=== PATIENT | female | born 1955 | race African-American/Black ===

== ENCOUNTER 2017-03-31 17:29 | Emergency (ER) | payer OTHER ==
[~2017-03-31 17:29] MED LIST: ALBU2.5V14 NEB; AMLO10TA2 PO; BRIM5DRO4 OP; CELE200C PO; CIPR500T PO; HYDR50TA6 PO; LATA2.5D3 EACHEYE; LORA10TA3 PO; METO10TA81 PO; ONDA4TAB10 SL; PHEN37.5 PO; PRED-220 PO; PROAIR HFA8.5 GM IH; VALS320T2 PO
[2017-03-31 17:39] VITALS: BP 164/95
[2017-03-31] MEDS ORDERED: ALBUTEROL SULFATE 2.5 MG/3 ML NEBU. NEB ONE (18:00)
--- NOTE | 2017-03-31 18:16 | PHYS DOC ---
Past Medical History Past Medical History: Asthma, Diabetes-Type II, Hypertension Additional Past Medical Histor: morbid obesity Past Surgical History: Tubal ligation Additional Past Surgical Histo: hernia surgery, gallstones removed Alcohol Use: None Drug Use: None Adult General Chief Complaint Chief Complaint: ASTHMA HPI HPI Patient is a 62 year old female who presents with 1 day history of worsening shortness of breath wheezing consistent with asthma exacerbation no fever or productive cough no chest pain no increased leg swelling. Patient's nebulizer machine recently broke unclear if she actually has inhalers to use his back. Review of Systems Review of Systems Constitutional: Denies fever or chills [] Eyes: Denies change in visual acuity, redness, or eye pain [] HENT: Denies nasal congestion or sore throat [] Respiratory: Denies cough or shortness of breath [] Cardiovascular: No additional information not addressed in HPI [] GI: Denies abdominal pain, nausea, vomiting, bloody stools or diarrhea [] : Denies dysuria or hematuria [] Musculoskeletal: Denies back pain or joint pain [] Integument: Denies rash or skin lesions [] Neurologic: Denies headache, focal weakness or sensory changes [] Endocrine: Denies polyuria or polydipsia [] Current Medications Current Medications Current Medications Medications (Trade) Dose Ordered Sig/Scott Start Time Stop Time Status Last Admin Dose Admin Albuterol Sulfate (Ventolin Neb Soln) 2.5 mg 1X ONCE 03/31/17 18:00 03/31/17 18:01 DC 03/31/17 18:21 2.5 MG Allergies Allergies Allergies Coded Allergies Type Severity Reaction Last Updated Verified Penicillins Allergy Intermediate rash 11/07/14 Yes adhesive Allergy Intermediate rash 11/07/14 Yes Uncoded Allergies Type Severity Reaction Last Updated Verified toilet tissue Allergy Severe Rash 11/13/14 Physical Exam Physical Exam Constitutional: Well developed, well nourished, no acute distress, non-toxic appearance. [] HENT: Normocephalic, atraumatic, bilateral external ears normal, oropharynx moist, no oral exudates, nose normal. [] Eyes: PERRLA, EOMI, conjunctiva normal, no discharge. [] Neck: Normal range of motion, no tenderness, supple, no stridor. [] Cardiovascular:Heart rate regular rhythm, no murmur [] Lungs & Thorax: Bilateral breath sounds clear to auscultation [] Abdomen: Bowel sounds normal, soft, no tenderness, no masses, no pulsatile masses. [] Skin: Warm, dry, no erythema, no rash. [] Back: No tenderness, no CVA tenderness. [] Extremities: No tenderness, no cyanosis, no clubbing, ROM intact, no edema. [] Neurologic: Alert and oriented X 3, normal motor function, normal sensory function, no focal deficits noted. [] Psychologic: Affect normal, judgement normal, mood normal. [] Current Patient Data Vital Signs Vital Signs Date Time Temp Pulse Resp B/P (MAP) Pulse Ox O2 Delivery O2 Flow Rate FiO2 03/31/17 18:22 97 03/31/17 17:39 98.3 70 24 164/95 (118) Room Air 98.3 Lab Values Laboratory Tests Test 03/31/17 17:50 Urine Collection Type Unknown Urine Color Yellow Urine Clarity Cloudy Urine pH 5.5 Urine Specific [place] 1.025 Urine Protein Negative mg/dL (NEG-TRACE) Urine Glucose (UA) 250 mg/dL (NEG) Urine Ketones (Stick) Trace mg/dL (NEG) Urine Blood Trace (NEG) Urine Nitrite Negative (NEG) Urine Bilirubin Negative (NEG) Urine Urobilinogen Dipstick 0.2 mg/dL (0.2 mg/dL) Urine Leukocyte Esterase Large (NEG) Urine RBC 3-5 /HPF (0-2) Urine WBC Tntc /HPF (0-4) Urine Squamous Epithelial Cells Many /LPF Urine Amorphous Sediment Present /HPF Urine Bacteria Many /HPF (0-FEW) Urine Mucus Mod /LPF Urine Trichomonas Present EKG EKG EKG normal sinus rhythm rate of 61 no STEMI QTC was normal interpreted by me at 1927 [] Radiology/Procedures Radiology/Procedures Chest x-ray cardiomegaly but no infiltrate interpretation by me [] Course & Med Decision Making Course & Med Decision Making Pertinent Labs and Imaging studies reviewed. (See chart for details) Chest x-ray shows some cardiomegaly but no infiltrates or pulmonary edema. UA is positive for UTI Trichomonas. [] Dragon Disclaimer Dragon Disclaimer This electronic medical record was generated, in whole or in part, using a voice recognition dictation system. Departure Departure Referrals: VANESSA PARADA MD (PCP) VANDANA SNOW MD Mar 31, 2017 18:16
--- NOTE | 2017-03-31 18:30 | EKG ---
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
[2017-03-31 18:42] LABS: BILIRUBIN,URINE NEGATIVE (NEG); GLUCOSE,URINE 250 mg/dL (NEG); NITRITE,URINE NEGATIVE (NEG); PH,URINE 5.5; PROTEIN,URINE NEGATIVE (NEG-TRACE); UROBILINOGEN,URINE 0.2 mg/dL (0.2 mg/dL)
[2017-03-31 18:50] LABS: BACTERIA,URINE MANY /HPF (0-FEW); SQUAMOUS EPITHELIAL CELL,UR MANY /LPF; WBC,URINE TNTC /HPF (0-4)
[2017-03-31 18:51] LABS: TRICHOMONAS,URINE PRESENT
[2017-03-31] MEDS ORDERED: oxyCODONE/APAP 5/325 1 TAB TABLET PO ONE (19:45)
[2017-03-31] MEDS ORDERED: NITR100C62 PO (20:21)
[2017-03-31] MEDS ORDERED: METR500T PO (20:21)
[2017-03-31] MEDS ORDERED: PROVENTIL HFA6.7 GM IH (20:21)
[2017-03-31] MEDS ORDERED: DEXAMETHASONE SOD PHOS 4 MG/ML VIAL IV ONE (20:30)
[2017-03-31 21:41] LABS: POTASSIUM ISTAT 4.3 mmol/L (3.5-5.0)
--- NOTE | 2017-04-01 07:55 | RAD ---
Portable chest, 03/31/2017: History: Cough, wheezing Comparison is made to a study from 11/14/2014. The cardiac silhouette is at the upper limits of normal in size. Prominent epicardial fat pads are contributing to this appearance. The pulmonary vascularity is normal. No pulmonary infiltrates are seen. There is no evidence of pleural fluid. IMPRESSION: No acute cardiopulmonary abnormality is detected.
--- NOTE | 2017-04-01 14:41 | EKG ---
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 RI6.01 Unconfirmed report Compared to ECG 12/03/2012 02:53:09 No significant changes Electronically Signed On 04-04-2017 10:40:00 CDT by Lul Del Rio
== END 2017-03-31 20:51 | disposition home or self-care (01) ==
LOC: ER 17:29
DX: R06.02 Shortness of breath (principal); R06.2 Wheezing; J45.909 Unspecified asthma, uncomplicated; E11.9 Type 2 diabetes mellitus without complications; I10 Essential (primary) hypertension; E66.01 Morbid (severe) obesity due to excess calories; Z88.0 Allergy status to penicillin; Z91.048 Other nonmedicinal substance allergy status
CPT/HCPCS: 71010; 80047; 81001; 84484; 87086; 93005; 94250; 94640; 99285-25

== ENCOUNTER → 2017-06-23 | Outpatient (CLI) | payer OTHER ==
[~2017-06-23] MED LIST changes: +METR500T PO; +NITR100C62 PO; +PROVENTIL HFA6.7 GM IH
--- NOTE | 2017-06-23 10:35 | RAD ---
DATE: 06/23/2017 EXAM: DIGITAL SCREEN BILAT W/CAD HISTORY: Screening COMPARISON: One year earlier This study was interpreted with the benefit of Computerized Aided Detection (CAD). FINDINGS: Breast Density: FATTY The Breast Parenchyma is primarily fatty replaced. Breast parenchyma level density A.. There has not been a significant change in the appearance of the breasts compared to the previous exam IMPRESSION: Benign finding BI-RADS CATEGORY: 2 BENIGN FINDING(S) RECOMMENDED FOLLOW-UP: 12M 12 MONTH FOLLOW-UP PQRS compliance statement: Patient information was entered into a reminder system with a target due date 06/23/2018 for the next mammogram. Mammography is a sensitive method for finding small breast cancers, but it does not detect them all and is not a substitute for careful clinical examination. A negative mammogram does not negate a clinically suspicious finding and should not result in delay in biopsying a clinically suspicious abnormality. "Our facility is accredited by the [employer] Mammography Program."
== END | disposition home or self-care (01) ==
LOC: MAMMO 06-15 08:41
PROVIDERS: ATTEND Family Medicine
DX: Z12.31 Encounter for screening mammogram for malignant neoplasm of breast (principal)
CPT/HCPCS: G0202; 77067

== ENCOUNTER → 2017-11-08 | Outpatient (CLI) | payer OTHER ==
[2017-11-08] MEDS: IOHEXOL 240 MG/ML 50ML VIAL. PO ×2 (11:45→13:26)
[2017-11-08] MEDS: IOHEXOL 300 MG/ML 100ML VIAL. IV ×2 (11:45→13:26)
[2017-11-08 12:19] LABS: CREATININE 1.2 mg/dL (0.6-1.0)
[2017-11-08 12:19] LABS: BLOOD UREA NITROGEN 24 mg/dL (7-20)
[2017-11-08 12:20] LABS: GFR 55.1
== END | disposition home or self-care (01) ==
LOC: CT 11:00
DX: K43.6 Other and unspecified ventral hernia with obstruction, without gangrene (principal); Z90.49 Acquired absence of other specified parts of digestive tract
CPT/HCPCS: 36415; 74177; 82565; 84520; Q9966; Q9967

== ENCOUNTER 2017-11-21 06:22 | Inpatient (IN) | payer OTHER ==
[2017-11-21] MEDS ORDERED: fentaNYL PF VIAL 100 MCG/2 ML VIAL IV (07:00)
[2017-11-21] MEDS ORDERED: LIDOCAINE 1% PF 2 ML VIAL. ID (07:00)
[2017-11-21] MEDS ORDERED: HYDROmorphone 2 MG/ML VIAL IV (07:00)
[2017-11-21] MEDS ORDERED: ONDANSETRON PF 4 MG/2 ML VIAL. IV ×2 (07:00→18:00)
[2017-11-21] MEDS ORDERED: MORPHINE SULFATE 2 MG/ML DISP.SYRIN. IV (07:00)
[2017-11-21] MEDS: IV RINGERS,LACTATED 1000ML 1,000 ML IV (08:20)
[2017-11-21 08:24] LABS: ADD MAN DIFF? NO
[2017-11-21 08:28] LABS: BASO # 0.1 x10^3/uL (0.0-0.2); BASO % 1 % (0-3); EOS # 0.2 x10^3/uL (0.0-0.7); EOS % 2 % (0-3); HEMATOCRIT 39.5 % (36.0-47.0); HEMOGLOBIN 12.9 g/dL (12.0-15.5); LYMPH # 2.5 x10^3/uL (1.0-4.8); LYMPH % 29 % (24-48); MEAN CORPUSCULAR HEMOGLOBIN 29 pg (25-35); MEAN CORPUSCULAR HGB CONC 33 g/dL (31-37); MEAN CORPUSCULAR VOLUME 89 fL (79-100); MONO # 0.9 x10^3/uL (0.0-1.1); MONO % 10 % (0-9); NEUT % 58 % (31-73); PLATELET COUNT 247 x10^3/uL (140-400); RED BLOOD COUNT 4.44 x10^6/uL (3.50-5.40); RED CELL DISTRIBUTION WIDTH 14.1 % (11.5-14.5); WHITE BLOOD COUNT 8.6 x10^3/uL (4.0-11.0)
[2017-11-21 08:39] LABS: ANION GAP 10 (6-14); BLOOD UREA NITROGEN 15 mg/dL (7-20); BUN/CREATININE RATIO 15 (6-20); CALCIUM 9.6 mg/dL (8.5-10.1); CARBON DIOXIDE 29 mmol/L (21-32); CHLORIDE 101 mmol/L (98-107); GLUCOSE 210 mg/dL (70-99); POTASSIUM 3.7 mmol/L (3.5-5.1); SODIUM 140 mmol/L (136-145)
[2017-11-21 08:45] LABS: ALBUMIN 3.1 g/dL (3.4-5.0); ALBUMIN/GLOBULIN RATIO 0.8 (1.0-1.7); ALK PHOS 143 U/L (46-116); ALT (SGPT) 16 U/L (14-59); AST (SGOT) 12 U/L (15-37); TOTAL PROTEIN 7.2 g/dL (6.4-8.2)
[2017-11-21 08:51] LABS: PROTHROMBIN TIME PATIENT 12.3 SEC (11.7-14.0)
[2017-11-21] MEDS: INSULIN REGULAR 100 UNIT/ML 10ML VIAL. SQ (08:58)
[2017-11-21] MEDS ORDERED: LIDOCAINE 2% PF Vial for OR 5 ML VIAL. (09:21)
[2017-11-21] MEDS ORDERED: fentaNYL PF VIAL 100 MCG/2 ML VIAL ×2 (09:21→16:16)
[2017-11-21] MEDS ORDERED: PROPOFOL 20 ML IV (09:21)
[2017-11-21] MEDS ORDERED: ROCURONIUM 50 MG/5 ML VIAL. ×2 (09:21→14:28)
[2017-11-21 10:07] LABS: POC GLUCOSE 162 mg/dL (70-99)
[2017-11-21] MEDS: CLINDAMYCIN 900MG PREMIX 50 ML IV ×2 (12:26→16:41)
[2017-11-21] MEDS ORDERED: ONDANSETRON PF 4 MG/2 ML VIAL. (12:30)
[2017-11-21] MEDS ORDERED: GLYCOPYRROLATE 1 MG/5 ML VIAL. (12:31)
[2017-11-21] MEDS ORDERED: PHENYLEPHRINE in 0.9% NACL PF 1 MG/10 ML SYRINGE. IV (12:35)
[2017-11-21] MEDS: BUPIVACAINE-EPI 0.25%-1:200000 50 ML VIAL. (12:42)
[2017-11-21] MEDS ORDERED: DESFLURANE > 120 MINUTES IH (15:25)
[2017-11-21] MEDS ORDERED: HYDROMORPHONE IV (18:00)
[2017-11-21] MEDS ORDERED: 0.9 % SODIUM CHLORIDE 10 ML DISP.SYRIN. IV (18:00)
[2017-11-21 18:05] LABS: POC GLUCOSE 260 mg/dL (70-99)
[2017-11-21] MEDS ORDERED: PROCHLORPERAZINE 10 MG/2 ML VIAL. (18:17)
[2017-11-21] MEDS ORDERED: INSULIN ASPART 100 UNIT/ML 10ML VIAL. SQ (18:17)
[2017-11-21] MEDS: IPRATRPIUM/ALBUTEROL 0.5/2.5MG 3 ML NEBU. NEB (18:20)
[2017-11-21] MEDS: INSULIN ASPART 100 UNIT/ML 10ML VIAL. SQ (18:23)
[2017-11-21] MEDS: fentaNYL PF VIAL 100 MCG/2 ML VIAL IV (18:25)
[2017-11-21 21:10] LABS: POC GLUCOSE 295 mg/dL (70-99)
[2017-11-21] MEDS ORDERED: DEXTROSE 50% 25 GM / 50ML DISP.SYRIN. IV (22:30)
[2017-11-22] MEDS: FAMOTIDINE 20 MG/2 ML VIAL IVP ×3 (00:02→21:40)
[2017-11-22] MEDS: INSULIN ASPART 300 UNITS/3 ML INSULN.PEN SQ ×5 (00:08→18:09)
[2017-11-22] MEDS: POTASSIUM CL 20MEQ-0.45% NACL 1,000 ML IV ×2 (03:00→03:56)
[2017-11-22 05:42] LABS: ADD MAN DIFF? NO
[2017-11-22 05:49] LABS: BASO % 0 % (0-3); EOS % 0 % (0-3); HEMOGLOBIN 12.5 g/dL (12.0-15.5); LYMPH % 8 % (24-48); MEAN CORPUSCULAR HEMOGLOBIN 29 pg (25-35); MEAN CORPUSCULAR HGB CONC 33 g/dL (31-37); MEAN CORPUSCULAR VOLUME 90 fL (79-100); MONO # 0.9 x10^3/uL (0.0-1.1); MONO % 7 % (0-9); NEUT # 10.3 x10^3uL (1.8-7.7); NEUT % 84 % (31-73); PLATELET COUNT 246 x10^3/uL (140-400); RED BLOOD COUNT 4.25 x10^6/uL (3.50-5.40); RED CELL DISTRIBUTION WIDTH 13.9 % (11.5-14.5); WHITE BLOOD COUNT 12.2 x10^3/uL (4.0-11.0)
[2017-11-22 06:28] LABS: ANION GAP 7 (6-14); BLOOD UREA NITROGEN 17 mg/dL (7-20); CALCIUM 9.4 mg/dL (8.5-10.1); CARBON DIOXIDE 30 mmol/L (21-32); CHLORIDE 101 mmol/L (98-107); CREATININE 1.4 mg/dL (0.6-1.0); GFR 46.1; GLUCOSE 238 mg/dL (70-99); POTASSIUM 4.5 mmol/L (3.5-5.1); SODIUM 138 mmol/L (136-145)
[2017-11-22 06:40] LABS: POC GLUCOSE 223 mg/dL (70-99)
[2017-11-22] MEDS: CLINDAMYCIN 600MG PREMIX 50 ML IV ×3 (06:42→21:40)
[2017-11-22] MEDS: INSULIN ASPART 100 UNIT/ML 10ML VIAL. SQ (09:01)
[2017-11-22] MEDS: CLINDAMYCIN 900MG PREMIX 50 ML IV ×3 (09:02→09:06)
[2017-11-22] MEDS: LACTOBACILLUS RHAMNOSUS GG 1 CAPSULE. PO ×2 (09:05→21:00)
[2017-11-22] MEDS: IV NORMAL SALINE 1000ML BAG 1,000 ML IV (13:00)
[2017-11-22 13:05] LABS: POC GLUCOSE 205 mg/dL (70-99)
[2017-11-22] MEDS: IPRATRPIUM/ALBUTEROL 0.5/2.5MG 3 ML NEBU. NEB ×2 (15:11→20:31)
[2017-11-22 18:08] LABS: POC GLUCOSE 165 mg/dL (70-99)
[2017-11-22] MEDS ORDERED: DEXTROSE 50% 25 GM / 50ML DISP.SYRIN. IV (19:30)
[2017-11-22] MEDS: DORZOLAMIDE 2% OPHTH SOLUTION 10ML BOTTLE. OU (21:00)
[2017-11-22 21:38] LABS: POC GLUCOSE 171 mg/dL (70-99)
[2017-11-22] MEDS: BRIMONIDINE 0.2% OPHTH SOLUTION 5ML BOTTLE. OU (21:41)
[2017-11-22] MEDS: LATANOPROST 0.005% OPHTH SOLUTION 2.5ML BOTTLE. OU (21:41)
[2017-11-23] MEDS: IV NORMAL SALINE 1000ML BAG 1,000 ML IV ×3 (00:04→22:16)
[2017-11-23 05:00] LABS: ADD MAN DIFF? NO
[2017-11-23 05:26] LABS: BASO % 0 % (0-3); EOS % 0 % (0-3); HEMATOCRIT 37.4 % (36.0-47.0); HEMOGLOBIN 12.2 g/dL (12.0-15.5); LYMPH # 2.5 x10^3/uL (1.0-4.8); LYMPH % 23 % (24-48); MEAN CORPUSCULAR HEMOGLOBIN 30 pg (25-35); MEAN CORPUSCULAR HGB CONC 33 g/dL (31-37); MEAN CORPUSCULAR VOLUME 91 fL (79-100); MONO # 1.2 x10^3/uL (0.0-1.1); MONO % 11 % (0-9); NEUT # 6.9 x10^3uL (1.8-7.7); NEUT % 65 % (31-73); PLATELET COUNT 212 x10^3/uL (140-400); RED BLOOD COUNT 4.12 x10^6/uL (3.50-5.40); RED CELL DISTRIBUTION WIDTH 14.4 % (11.5-14.5); WHITE BLOOD COUNT 10.6 x10^3/uL (4.0-11.0)
[2017-11-23] MEDS: CLINDAMYCIN 600MG PREMIX 50 ML IV ×3 (05:59→22:04)
[2017-11-23 06:07] LABS: ALBUMIN 2.8 g/dL (3.4-5.0); ALBUMIN/GLOBULIN RATIO 0.7 (1.0-1.7); ALK PHOS 158 U/L (46-116); ALT (SGPT) 71 U/L (14-59); ANION GAP 7 (6-14); AST (SGOT) 28 U/L (15-37); BLOOD UREA NITROGEN 16 mg/dL (7-20); BUN/CREATININE RATIO 13 (6-20); CARBON DIOXIDE 32 mmol/L (21-32); CHLORIDE 103 mmol/L (98-107); CREATININE 1.2 mg/dL (0.6-1.0); GFR 55.1; GLUCOSE 165 mg/dL (70-99); SODIUM 142 mmol/L (136-145); TOTAL BILIRUBIN 0.8 mg/dL (0.2-1.0); TOTAL PROTEIN 6.7 g/dL (6.4-8.2)
[2017-11-23] MEDS: IPRATRPIUM/ALBUTEROL 0.5/2.5MG 3 ML NEBU. NEB ×4 (07:49→20:00)
[2017-11-23 08:17] LABS: POC GLUCOSE 166 mg/dL (70-99)
[2017-11-23] MEDS: BRIMONIDINE 0.2% OPHTH SOLUTION 5ML BOTTLE. OU ×2 (08:29→22:04)
[2017-11-23] MEDS: INSULIN ASPART 300 UNITS/3 ML INSULN.PEN SQ ×5 (08:35→17:43)
[2017-11-23] MEDS: LACTOBACILLUS RHAMNOSUS GG 1 CAPSULE. PO ×2 (08:36→22:05)
[2017-11-23] MEDS: DORZOLAMIDE 2% OPHTH SOLUTION 10ML BOTTLE. OU ×2 (08:37→22:04)
[2017-11-23] MEDS: FAMOTIDINE 20 MG/2 ML VIAL IVP ×2 (09:20→22:05)
[2017-11-23 11:15] LABS: POC GLUCOSE 161 mg/dL (70-99)
[2017-11-23] MEDS: INSULIN DETEMIR 300 UNITS/3 ML INSULN.PEN. SQ ×2 (13:00→22:23)
[2017-11-23 16:42] LABS: POC GLUCOSE 152 mg/dL (70-99)
[2017-11-23 21:17] LABS: POC GLUCOSE 165 mg/dL (70-99)
[2017-11-23] MEDS: LATANOPROST 0.005% OPHTH SOLUTION 2.5ML BOTTLE. OU (22:05)
[2017-11-24 04:23] LABS: HEMOGLOBIN A1C 8.6 % (4.8-5.6)
[2017-11-24 05:17] LABS: ADD MAN DIFF? NO
[2017-11-24 05:29] LABS: BASO # 0.1 x10^3/uL (0.0-0.2); BASO % 1 % (0-3); EOS # 0.2 x10^3/uL (0.0-0.7); EOS % 2 % (0-3); HEMATOCRIT 35.7 % (36.0-47.0); HEMOGLOBIN 11.7 g/dL (12.0-15.5); LYMPH # 2.4 x10^3/uL (1.0-4.8); LYMPH % 22 % (24-48); MEAN CORPUSCULAR HEMOGLOBIN 30 pg (25-35); MEAN CORPUSCULAR HGB CONC 33 g/dL (31-37); MEAN CORPUSCULAR VOLUME 91 fL (79-100); MONO # 1.2 x10^3/uL (0.0-1.1); MONO % 11 % (0-9); NEUT # 7.1 x10^3uL (1.8-7.7); NEUT % 65 % (31-73); PLATELET COUNT 213 x10^3/uL (140-400); RED BLOOD COUNT 3.94 x10^6/uL (3.50-5.40); RED CELL DISTRIBUTION WIDTH 14.2 % (11.5-14.5); WHITE BLOOD COUNT 10.9 x10^3/uL (4.0-11.0)
[2017-11-24] MEDS: CLINDAMYCIN 600MG PREMIX 50 ML IV (05:38)
[2017-11-24 05:52] LABS: ANION GAP 5 (6-14); BLOOD UREA NITROGEN 12 mg/dL (7-20); CALCIUM 8.4 mg/dL (8.5-10.1); CARBON DIOXIDE 32 mmol/L (21-32); CHLORIDE 102 mmol/L (98-107); CREATININE 1.2 mg/dL (0.6-1.0); GFR 55.1; GLUCOSE 176 mg/dL (70-99); POTASSIUM 3.8 mmol/L (3.5-5.1); SODIUM 139 mmol/L (136-145)
[2017-11-24] MEDS: IPRATRPIUM/ALBUTEROL 0.5/2.5MG 3 ML NEBU. NEB ×4 (07:01→19:53)
[2017-11-24 08:00] LABS: POC GLUCOSE 164 mg/dL (70-99)
[2017-11-24] MEDS: INSULIN ASPART 300 UNITS/3 ML INSULN.PEN SQ ×6 (08:00→17:54)
[2017-11-24] MEDS: LACTOBACILLUS RHAMNOSUS GG 1 CAPSULE. PO ×2 (08:20→21:12)
[2017-11-24] MEDS: FAMOTIDINE 20 MG/2 ML VIAL IVP ×2 (08:21→21:12)
[2017-11-24] MEDS: BRIMONIDINE 0.2% OPHTH SOLUTION 5ML BOTTLE. OU ×3 (08:28→21:00)
[2017-11-24] MEDS: DORZOLAMIDE 2% OPHTH SOLUTION 10ML BOTTLE. OU ×2 (08:28→21:00)
[2017-11-24 11:56] LABS: POC GLUCOSE 133 mg/dL (70-99)
[2017-11-24 17:07] LABS: POC GLUCOSE 119 mg/dL (70-99)
[2017-11-24] MEDS: GABAPENTIN 100 MG CAPSULE. PO ×2 (17:57→21:11)
[2017-11-24 20:25] LABS: POC GLUCOSE 151 mg/dL (70-99)
[2017-11-24] MEDS: LATANOPROST 0.005% OPHTH SOLUTION 2.5ML BOTTLE. OU (21:00)
[2017-11-24] MEDS: INSULIN DETEMIR 300 UNITS/3 ML INSULN.PEN. SQ (21:21)
[2017-11-25 04:53] LABS: ADD MAN DIFF? NO
[2017-11-25 05:15] LABS: BASO % 0 % (0-3); EOS # 0.3 x10^3/uL (0.0-0.7); EOS % 3 % (0-3); HEMATOCRIT 38.1 % (36.0-47.0); HEMOGLOBIN 12.7 g/dL (12.0-15.5); LYMPH # 2.3 x10^3/uL (1.0-4.8); LYMPH % 22 % (24-48); MEAN CORPUSCULAR HEMOGLOBIN 30 pg (25-35); MEAN CORPUSCULAR HGB CONC 33 g/dL (31-37); MEAN CORPUSCULAR VOLUME 91 fL (79-100); MONO % 10 % (0-9); NEUT # 6.6 x10^3uL (1.8-7.7); NEUT % 64 % (31-73); PLATELET COUNT 228 x10^3/uL (140-400); RED BLOOD COUNT 4.19 x10^6/uL (3.50-5.40); RED CELL DISTRIBUTION WIDTH 13.9 % (11.5-14.5); WHITE BLOOD COUNT 10.2 x10^3/uL (4.0-11.0)
[2017-11-25 05:18] LABS: ANION GAP 9 (6-14); BLOOD UREA NITROGEN 9 mg/dL (7-20); CALCIUM 9.3 mg/dL (8.5-10.1); CARBON DIOXIDE 30 mmol/L (21-32); CHLORIDE 102 mmol/L (98-107); CREATININE 1.1 mg/dL (0.6-1.0); GFR 60.9; GLUCOSE 141 mg/dL (70-99); POTASSIUM 3.8 mmol/L (3.5-5.1); SODIUM 141 mmol/L (136-145)
[2017-11-25] MEDS: IPRATRPIUM/ALBUTEROL 0.5/2.5MG 3 ML NEBU. NEB ×3 (07:00→14:44)
[2017-11-25] MEDS: INSULIN ASPART 300 UNITS/3 ML INSULN.PEN SQ ×4 (08:00→12:26)
[2017-11-25 08:12] LABS: POC GLUCOSE 133 mg/dL (70-99)
[2017-11-25] MEDS: FAMOTIDINE 20 MG/2 ML VIAL IVP (08:43)
[2017-11-25] MEDS: GABAPENTIN 100 MG CAPSULE. PO ×2 (08:44→12:20)
[2017-11-25] MEDS: LACTOBACILLUS RHAMNOSUS GG 1 CAPSULE. PO (08:44)
[2017-11-25] MEDS: BRIMONIDINE 0.2% OPHTH SOLUTION 5ML BOTTLE. OU (08:48)
[2017-11-25] MEDS: DORZOLAMIDE 2% OPHTH SOLUTION 10ML BOTTLE. OU (08:48)
[2017-11-25 11:12] LABS: POC GLUCOSE 152 mg/dL (70-99)
== END 2017-11-25 16:30 | disposition home or self-care (01) | DRG 335 ==
LOC: SURG 06:22 → 4 NORTH 20:52
PROC: 0WUF0JZ Supplement Abdominal Wall with Synthetic Substitute, Open Approach (ICD-10-PCS; principal; 2017-11-21 12:10)
PROC: 0DNE0ZZ Release Large Intestine, Open Approach (ICD-10-PCS; 2017-11-21 12:10)
PROC: 0DN80ZZ Release Small Intestine, Open Approach (ICD-10-PCS; 2017-11-21 12:10)
DX: K43.2 Incisional hernia without obstruction or gangrene (principal); N17.0 Acute kidney failure with tubular necrosis; Z68.44 Body mass index [BMI] 60.0-69.9, adult; Z68.43 Body mass index [BMI] 50.0-59.9, adult; E11.65 Type 2 diabetes mellitus with hyperglycemia; E66.01 Morbid (severe) obesity due to excess calories; K66.0 Peritoneal adhesions (postprocedural) (postinfection); G47.33 Obstructive sleep apnea (adult) (pediatric); I10 Essential (primary) hypertension; J45.909 Unspecified asthma, uncomplicated; Z88.0 Allergy status to penicillin
CPT/HCPCS: 36415; 71045; 80048; 80053; 82962; 83036; 85025; 85610; 87071; 87075; 87116; 87205; 88304; 93970; 94640; 94760; 97161-GP; 97165-GO; A4215; C1781; J0780; J1170; J1815; J2370; J2405; J2704; J3010; J3490; J7030; J7120; J7620; S0028

== ENCOUNTER → 2018-06-22 | Outpatient (CLI) | payer OTHER ==
[2017-11-25 15:00] VITALS: BP 142/73
[~2018-06-22] MED LIST changes: +ACET-706 PO; +ACET1TAB37; +ALBU8.5H8; -AMLO10TA2 PO; +AMLO10TA6 PO; +BRIN8DRO OP; +CELE-20; +DIPH1TAB PO; +DIPH1TAB5; +FAMO20TA5 PO; +INSU100I17 SQ; +INSU100I30 SQ; +INSU100V11 IJ; +INSU200I4; +METF500T16 PO; +PANT40TA5 PO; +PHEN-444; +VALS320T13
--- NOTE | 2018-06-22 14:29 | RAD ---
DATE: 06/22/2018 EXAM: DIGITAL SCREEN BILAT W/CAD HISTORY: Routine screening COMPARISON: 06/23/2017 This study was interpreted with the benefit of Computerized Aided Detection (CAD). Breast Density: FATTY The breast parenchyma is primarily fatty replaced. Breast parenchyma level density A. FINDINGS: No new or enlarging breast densities are seen. Scattered benign type calcifications are again noted. No suspicious microcalcifications have developed. IMPRESSION: Stable mammograms without evidence of malignancy. BI-RADS CATEGORY: 2 BENIGN FINDING(S) RECOMMENDED FOLLOW-UP: 12M 12 MONTH FOLLOW-UP PQRS compliance statement: Patient information was entered into a reminder system with a target due date for the next mammogram. Mammography is a sensitive method for finding small breast cancers, but it does not detect them all and is not a substitute for careful clinical examination. A negative mammogram does not negate a clinically suspicious finding and should not result in delay in biopsying a clinically suspicious abnormality. "Our facility is accredited by the [employer] Mammography Program."
== END | disposition home or self-care (01) ==
LOC: MAMMO 10:34
PROVIDERS: ATTEND Nurse Practitioner
DX: Z12.31 Encounter for screening mammogram for malignant neoplasm of breast (principal); I12.9 Hypertensive chronic kidney disease with stage 1 through stage 4 chronic kidney disease, or unspecified chronic kidney disease; E11.22 Type 2 diabetes mellitus with diabetic chronic kidney disease; N18.3 Chronic kidney disease, stage 3 (moderate); K21.0 Gastro-esophageal reflux disease with esophagitis; Z79.4 Long term (current) use of insulin; Z87.891 Personal history of nicotine dependence; Z88.0 Allergy status to penicillin; Z88.8 Allergy status to other drugs, medicaments and biological substances; Z90.49 Acquired absence of other specified parts of digestive tract; Z83.3 Family history of diabetes mellitus; Z80.3 Family history of malignant neoplasm of breast
CPT/HCPCS: 77067

== ENCOUNTER → 2018-12-20 | Outpatient (CLI) | payer OTHER ==
[2017-11-25 15:00] VITALS: BP 142/73
[~2018-12-20] MED LIST changes: +ALBU2.5V8; +ALBU2.5V8 IH; -ALBU8.5H8; -AMLO10TA6 PO; +AMLO10TA8 PO; -PROAIR HFA8.5 GM IH; -PROVENTIL HFA6.7 GM IH
--- NOTE | 2018-12-20 11:58 | RAD ---
EXAM: Renal sonogram. HISTORY: Renal insufficiency. TECHNIQUE: Sonographic imaging of the kidneys and bladder was performed. COMPARISON: None. FINDINGS: The right kidney measures 9.1 cm [id number]. The left kidney measures 10.3 cm [id number]. There are left renal cysts, the largest of which measures 1.7 cm. There is no hydronephrosis. The bladder is partially decompressed. IMPRESSION: 1. Small left renal cysts. 2. Otherwise, unremarkable renal sonogram. Electronically signed by: Jerri Carranza MD (12/20/2018 11:55 AM) [place] [id number]
[2018-12-20 12:19] LABS: BILIRUBIN,URINE NEGATIVE (NEG); CLARITY,URINE CLOUDY; COLOR,URINE YELLOW; NITRITE,URINE NEGATIVE (NEG); PROTEIN,URINE NEGATIVE (NEG-TRACE); UROBILINOGEN,URINE 0.2 mg/dL (0.2 mg/dL)
[2018-12-20 12:20] LABS: ALBUMIN 3.4 g/dL (3.4-5.0); CALCIUM 9.5 mg/dL (8.5-10.1); CREATININE 1.6 mg/dL (0.6-1.0); GFR 39.4; POTASSIUM 3.9 mmol/L (3.5-5.1); SQUAMOUS EPITHELIAL CELL,UR MOD /LPF
[2018-12-20 12:21] LABS: BACTERIA,URINE MANY /HPF (0-FEW); TRICHOMONAS,URINE PRESENT; WBC,URINE 20-40 /HPF (0-4)
[2018-12-20 17:17] LABS: CREAT RD UR 99.6 mg/dL (Not Estab.); MICRO CREAT RATIO 14.8 mg/g creat (0.0-30.0); MICROALB RD UR 14.7 ug/mL (Not Estab.); UR PROTEIN RD 27.8 mg/dL (Not Estab.)
== END | disposition home or self-care (01) ==
LOC: US 11:35
PROVIDERS: ATTEND Internal Medicine Nephrology
DX: N28.1 Cyst of kidney, acquired (principal); I12.9 Hypertensive chronic kidney disease with stage 1 through stage 4 chronic kidney disease, or unspecified chronic kidney disease; N18.9 Chronic kidney disease, unspecified; Z68.42 Body mass index [BMI] 45.0-49.9, adult
CPT/HCPCS: 36415; 76770; 80069; 81001; 82043; 82570; 84156; 87086

== ENCOUNTER → 2019-02-22 | Outpatient (CLI) | payer OTHER ==
[2017-11-25 15:00] VITALS: BP 142/73
[2019-02-22 09:22] LABS: BILIRUBIN,URINE NEGATIVE (NEG); CLARITY,URINE CLEAR; COLOR,URINE YELLOW; NITRITE,URINE NEGATIVE (NEG); PROTEIN,URINE NEGATIVE (NEG-TRACE); UROBILINOGEN,URINE 0.2 mg/dL (0.2 mg/dL)
[2019-02-22 09:36] LABS: ALBUMIN 3.4 g/dL (3.4-5.0); CALCIUM 9.4 mg/dL (8.5-10.1); CREATININE 1.8 mg/dL (0.6-1.0); GFR 34.4; MAGNESIUM 2.1 mg/dL (1.8-2.4); PHOSPHORUS 3.6 mg/dL (2.6-4.7); POTASSIUM 4.3 mmol/L (3.5-5.1)
[2019-02-22 09:42] LABS: CREATININE,RANDOM URINE 129.4 mg/dL (Not Establ.)
[2019-02-22 09:55] LABS: SQUAMOUS EPITHELIAL CELL,UR MOD /LPF
[2019-02-22 09:57] LABS: BACTERIA,URINE 0 /HPF (0-FEW); WBC,URINE >40 /HPF (0-4)
[2019-02-22 19:13] LABS: CALCIUM PTH 9.3 mg/dL (8.7-10.3); CREAT RD UR 120.7 mg/dL (Not Estab.); CREATININE PTH 1.71 mg/dL (0.57-1.00); MICRO CREAT RATIO 17.3 mg/g creat (0.0-30.0); MICROALB RD UR 20.9 ug/mL (Not Estab.); PHOSPHORUS PTH 3.6 mg/dL (2.5-4.5); PTH INTACT 165 pg/mL (15-65)
== END | disposition home or self-care (01) ==
LOC: LAB 08:38
PROVIDERS: ATTEND Internal Medicine Nephrology
DX: I12.9 Hypertensive chronic kidney disease with stage 1 through stage 4 chronic kidney disease, or unspecified chronic kidney disease (principal); E11.22 Type 2 diabetes mellitus with diabetic chronic kidney disease; N18.3 Chronic kidney disease, stage 3 (moderate); Z68.42 Body mass index [BMI] 45.0-49.9, adult
CPT/HCPCS: 36415; 80069; 81001; 82043; 82306; 82570; 83735; 83970; 84156

== ENCOUNTER → 2019-03-06 | Outpatient (CLI) | payer OTHER ==
[2017-11-25 15:00] VITALS: BP 142/73
[~2019-03-06] MED LIST changes: +IOHEXOL 240 MG/ML 50ML VIAL. PO ONE
--- NOTE | 2019-03-06 15:58 | RAD ---
CT of the abdomen and pelvis without contrast, 03/06/2019: History: Chronic kidney disease, back pain Multidetector CT imaging was performed without IV contrast as requested. Oral contrast material was given for bowel opacification. There is minimal linear scarring in the lung bases. The gallbladder is surgically absent. The unopacified liver shows no abnormality. No pancreatic abnormality is seen. The spleen is of normal size. There is an unchanged small cortical nodule arising from the anterior aspect of the left kidney compatible with a renal cyst. The unopacified kidneys are otherwise unremarkable without evidence of obstruction. There are periureteral calcifications on the right which are unchanged and appear to represent phleboliths. There is minimal aortoiliac calcific plaquing without evidence of aneurysm. No abdominal or pelvic adenopathy is seen. The uterus is unremarkable. The bowel loops are not dilated. No free fluid or free air is evident in the abdomen or pelvis. There is diastases of the rectus abdominis musculature. There is anterior bulging of the intervening fascia. A mesh is again noted in this region compatible with a previous ventral hernia repair. There is left lateral bulging of nonobstructed small bowel loops at this level compatible with a recurrent hernia. There are moderate adjacent areas of increased density in the subcutaneous fat compatible with scarring. These findings are unchanged. Again noted are 2 additional small midline fascial defects containing fat. These also appear unchanged. Moderate multilevel degenerative changes are present in the spine. IMPRESSION: 1. Repaired lower abdominal ventral hernia with recurrent left lateral herniation containing nonobstructed small bowel loops, unchanged since 11/08/2017. 2. Additional stable small fat-containing midline fascial defects in the mid and upper anterior abdominal wall. 3. No acute intra-abdominal or pelvic abnormality is detected. PQRS Compliance Statement: One or more of the following individualized dose reduction techniques were utilized for this examination: 1. Automated exposure control 2. Adjustment of the mA and/or kV according to patient size 3. Use of iterative reconstruction technique
== END | disposition home or self-care (01) ==
LOC: CT 13:58
PROVIDERS: ATTEND Internal Medicine Nephrology
DX: I12.9 Hypertensive chronic kidney disease with stage 1 through stage 4 chronic kidney disease, or unspecified chronic kidney disease (principal); N18.3 Chronic kidney disease, stage 3 (moderate); N28.9 Disorder of kidney and ureter, unspecified; K43.9 Ventral hernia without obstruction or gangrene; I70.0 Atherosclerosis of aorta; M62.08 Separation of muscle (nontraumatic), other site
CPT/HCPCS: 74176

== ENCOUNTER → 2019-06-25 | Outpatient (CLI) | payer MEDICAID ==
[2017-11-25 15:00] VITALS: BP 142/73
[~2019-06-25] MED LIST changes: -IOHEXOL 240 MG/ML 50ML VIAL. PO ONE; -PANT40TA5 PO; +PANT40TA77 PO
[2019-06-25 11:30] LABS: ALBUMIN 3.7 g/dL (3.4-5.0); CALCIUM 9.4 mg/dL (8.5-10.1); CREATININE 1.5 mg/dL (0.6-1.0); GFR 42.3; PHOSPHORUS 3.7 mg/dL (2.6-4.7); POTASSIUM 4.2 mmol/L (3.5-5.1)
== END | disposition home or self-care (01) ==
LOC: LAB 10:31
PROVIDERS: ATTEND Internal Medicine Nephrology
DX: N18.3 Chronic kidney disease, stage 3 (moderate) (principal); N20.0 Calculus of kidney; Z68.42 Body mass index [BMI] 45.0-49.9, adult
CPT/HCPCS: 36415; 80069; 82306

== ENCOUNTER → 2019-06-25 | Outpatient (CLI) | payer MEDICAID ==
[2017-11-25 15:00] VITALS: BP 142/73
--- NOTE | 2019-06-26 17:59 | RAD ---
DATE: 06/25/2019 EXAM: DIGITAL SCREEN BILAT W/CAD HISTORY: Routine screening COMPARISON: 06/23/2017, 06/22/2018 mammographic exams This study was interpreted with the benefit of Computerized Aided Detection (CAD). Breast Density: FATTY The breast parenchyma is primarily fatty replaced. Breast parenchyma level density A. FINDINGS: Small masses are present and smoothly marginated bilaterally. No dominant mass, suspicious calcification, or distortion. IMPRESSION: Stable BI-RADS CATEGORY: 1 NEGATIVE RECOMMENDED FOLLOW-UP: 12M 12 MONTH FOLLOW-UP PQRS compliance statement: Patient information was entered into a reminder system with a target due date in one year for the next mammogram. Mammography is a sensitive method for finding small breast cancers, but it does not detect them all and is not a substitute for careful clinical examination. A negative mammogram does not negate a clinically suspicious finding and should not result in delay in biopsying a clinically suspicious abnormality. "Our facility is accredited by the [employer] Mammography [employer]."
== END | disposition home or self-care (01) ==
LOC: MAMMO 10:22
PROVIDERS: ATTEND Pediatrics
DX: Z12.31 Encounter for screening mammogram for malignant neoplasm of breast (principal)
CPT/HCPCS: 77067

== ENCOUNTER → 2020-05-30 | Outpatient (CLI) | payer MEDICAID ==
[2017-11-25 15:00] VITALS: BP 142/73
[~2020-05-30] MED LIST changes: +PROVENTIL HFA6.7 GM IH
[2020-05-30 10:15] LABS: ALBUMIN 3.4 g/dL (3.4-5.0); CALCIUM 8.7 mg/dL (8.5-10.1); CREATININE 1.4 mg/dL (0.6-1.0); GFR 45.7; PHOSPHORUS 3.2 mg/dL (2.6-4.7); POTASSIUM 4.2 mmol/L (3.5-5.1)
== END | disposition home or self-care (01) ==
LOC: LAB 09:29
PROVIDERS: ATTEND Internal Medicine Nephrology
DX: N28.1 Cyst of kidney, acquired (principal); N20.0 Calculus of kidney; E55.9 Vitamin D deficiency, unspecified; I12.9 Hypertensive chronic kidney disease with stage 1 through stage 4 chronic kidney disease, or unspecified chronic kidney disease; N18.3 Chronic kidney disease, stage 3 (moderate); E11.22 Type 2 diabetes mellitus with diabetic chronic kidney disease; E11.21 Type 2 diabetes mellitus with diabetic nephropathy; Z79.1 Long term (current) use of non-steroidal anti-inflammatories (NSAID); Z68.42 Body mass index [BMI] 45.0-49.9, adult
CPT/HCPCS: 36415; 80069

== ENCOUNTER → 2020-07-10 | Outpatient (CLI) | payer MEDICAID ==
[2017-11-25 15:00] VITALS: BP 142/73
--- NOTE | 2020-07-10 11:43 | RAD ---
BILATERAL SCREENING MAMMOGRAM History: Routine screening. Comparison: 06/25/2019, 06/22/2018, 06/23/2017, 06/22/2016. Technique: Routine bilateral digital mammogram views were obtained. Findings: Breast Tissue Density B : There are scattered areas of fibroglandular density. There are no dominant masses, suspicious microcalcifications, or architectural distortion. IMPRESSION: No mammographic evidence of malignancy. Recommend routine screening. BI-RADS category 1: Negative. The images were reviewed with computer aided detection. Patient information is entered into the reminder system with a target due date for the next screening mammogram. Mammography is the most sensitive method for finding small breast cancers, but it does not detect them all and is not a substitute for careful clinical examination. A negative mammogram does not negate a clinically suspicious finding and should not result in delay in biopsying a clinically suspicious abnormality. "Our facility is accredited by the [employer] Mammography Program." Electronically signed by: Kyle Blanca MD (07/10/2020 11:41 AM) [id number]
== END | disposition home or self-care (01) ==
LOC: MAMMO 08:56
PROVIDERS: ATTEND Pediatrics
DX: Z12.31 Encounter for screening mammogram for malignant neoplasm of breast (principal)
CPT/HCPCS: 77067

== ENCOUNTER → 2020-12-24 | Outpatient (CLI) | payer MEDICAID ==
[2017-11-25 15:00] VITALS: BP 142/73
[~2020-12-24] MED LIST changes: +AMLO-187 PO; -AMLO10TA8 PO; -CIPR500T PO; +CIPR500T2 PO; -HYDR50TA6 PO; +HYDR50TA9 PO
[2020-12-24 10:16] LABS: ALBUMIN 3.6 g/dL (3.4-5.0); ALBUMIN/GLOBULIN RATIO 0.7 (1.0-1.7); CALCIUM 8.9 mg/dL (8.5-10.1); CREATININE 1.4 mg/dL (0.6-1.0); GFR 45.7; POTASSIUM 4.3 mmol/L (3.5-5.1); TOTAL BILIRUBIN 0.5 mg/dL (0.2-1.0); TOTAL PROTEIN 8.5 g/dL (6.4-8.2)
[2020-12-24 10:17] LABS: CHOLESTEROL/HDL RATIO 3.3
== END ==
LOC: LAB 09:01
PROVIDERS: ATTEND Nurse Practitioner
DX: E11.65 Type 2 diabetes mellitus with hyperglycemia (principal)
CPT/HCPCS: 36415; 80053; 80061

== ENCOUNTER → 2020-12-24 | Outpatient (CLI) | payer MEDICAID ==
[2017-11-25 15:00] VITALS: BP 142/73
[2020-12-24 10:07] LABS: HEMATOCRIT 37.4 % (36.0-47.0); HEMOGLOBIN 12.2 g/dL (12.0-15.5)
[2020-12-24 10:29] LABS: ALBUMIN 3.6 g/dL (3.4-5.0); CREATININE 1.5 mg/dL (0.6-1.0); GFR 42.2; PHOSPHORUS 3.6 mg/dL (2.6-4.7); POTASSIUM 4.3 mmol/L (3.5-5.1)
[2020-12-25 00:10] LABS: CALCIUM PTH 9.8 mg/dL (8.7-10.3); PHOSPHORUS PTH 3.8 mg/dL (3.0-4.3); PTH INTACT 149 pg/mL (15-65)
== END ==
LOC: LAB 08:56
PROVIDERS: ATTEND Nurse Practitioner Adult Health
DX: I12.9 Hypertensive chronic kidney disease with stage 1 through stage 4 chronic kidney disease, or unspecified chronic kidney disease (principal); N18.30 Chronic kidney disease, stage 3 unspecified; E11.21 Type 2 diabetes mellitus with diabetic nephropathy; N20.0 Calculus of kidney; N28.1 Cyst of kidney, acquired; E55.9 Vitamin D deficiency, unspecified; Z79.84 Long term (current) use of oral hypoglycemic drugs; Z79.1 Long term (current) use of non-steroidal anti-inflammatories (NSAID)
CPT/HCPCS: 36415; 80069; 82306; 82728; 83540; 83550; 83970; 85014; 85018

== ENCOUNTER → 2021-06-17 | Outpatient (CLI) | payer MEDICAID ==
[2017-11-25 15:00] VITALS: BP 142/73
[~2021-06-17] MED LIST changes: -PHEN37.5 PO; +PHEN37.59 PO
[2021-06-17 13:33] LABS: BILIRUBIN,URINE NEGATIVE (NEG); CLARITY,URINE CLEAR; COLOR,URINE YELLOW; NITRITE,URINE NEGATIVE (NEG); PROTEIN,URINE 30 mg/dL (NEG-TRACE); UROBILINOGEN,URINE 0.2 mg/dL (0.2 mg/dL)
[2021-06-17 13:45] LABS: HYALINE CASTS, URINE OCCASIONAL /HPF
[2021-06-17 13:46] LABS: BACTERIA,URINE FEW /HPF (0-FEW); TRICHOMONAS,URINE PRESENT
[2021-06-17 13:56] LABS: CREATININE,RANDOM URINE 89.2 mg/dL (Not Establ.)
[2021-06-17 14:02] LABS: ALBUMIN 3.3 g/dL (3.4-5.0); CALCIUM 8.6 mg/dL (8.5-10.1); CREATININE 1.4 mg/dL (0.6-1.0); GFR 45.5; MAGNESIUM 1.6 mg/dL (1.8-2.4); PHOSPHORUS 3.7 mg/dL (2.6-4.7); POTASSIUM 3.7 mmol/L (3.5-5.1)
[2021-06-17 23:07] LABS: CREAT RD UR 80.3 mg/dL (Not Estab.); MICROALB RD UR 290.4 ug/mL (Not Estab.)
[2021-06-18 00:24] LABS: CALCIUM PTH 8.8 mg/dL (8.7-10.3); CREATININE PTH 1.13 mg/dL (0.57-1.00); PHOSPHORUS PTH 3.7 mg/dL (3.0-4.3); PTH INTACT 168 pg/mL (15-65)
== END ==
LOC: LAB 12:30
PROVIDERS: ATTEND Internal Medicine Nephrology
DX: I12.9 Hypertensive chronic kidney disease with stage 1 through stage 4 chronic kidney disease, or unspecified chronic kidney disease (principal); E11.22 Type 2 diabetes mellitus with diabetic chronic kidney disease; N18.31 Chronic kidney disease, stage 3a; E11.21 Type 2 diabetes mellitus with diabetic nephropathy; N20.0 Calculus of kidney; N28.1 Cyst of kidney, acquired; E55.9 Vitamin D deficiency, unspecified; Z68.43 Body mass index [BMI] 50.0-59.9, adult; Z79.1 Long term (current) use of non-steroidal anti-inflammatories (NSAID); Z79.84 Long term (current) use of oral hypoglycemic drugs; E66.9 Obesity, unspecified
CPT/HCPCS: 80069; 81001; 82043; 82306; 82570; 83735; 83970; 84156; 87086

== ENCOUNTER → 2021-06-17 | Outpatient (CLI) | payer MEDICAID ==
[2017-11-25 15:00] VITALS: BP 142/73
[2021-06-17 13:18] LABS: HEMATOCRIT 37.5 % (36.0-47.0); HEMOGLOBIN 12.4 g/dL (12.0-15.5); RED BLOOD COUNT 4.05 x10^6/uL (3.50-5.40); RED CELL DISTRIBUTION WIDTH 14.1 % (11.5-14.5); WHITE BLOOD COUNT 7.8 x10^3/uL (4.0-11.0)
[2021-06-17 14:01] LABS: ALBUMIN 3.3 g/dL (3.4-5.0); ALBUMIN/GLOBULIN RATIO 0.8 (1.0-1.7); CALCIUM 8.7 mg/dL (8.5-10.1); CREATININE 1.3 mg/dL (0.6-1.0); GFR 49.6; POTASSIUM 3.7 mmol/L (3.5-5.1); TOTAL BILIRUBIN 0.5 mg/dL (0.2-1.0); TOTAL PROTEIN 7.5 g/dL (6.4-8.2)
[2021-06-17 14:09] LABS: CHOLESTEROL/HDL RATIO 4.5
[2021-06-17 14:10] LABS: FREE T4 1.02 ng/dL (0.76-1.46); THYROID STIM HORMONE (TSH) 0.938 uIU/mL (0.358-3.74)
[2021-06-18 04:15] LABS: HEMOGLOBIN A1C 8.9 % (4.8-5.6)
== END ==
LOC: LAB 12:20
PROVIDERS: ATTEND Pediatrics
DX: I10 Essential (primary) hypertension (principal); E11.9 Type 2 diabetes mellitus without complications; E78.2 Mixed hyperlipidemia
CPT/HCPCS: 36415; 80053; 80061; 83036; 84439; 84443; 85027

== ENCOUNTER 2022-02-23 09:36 | Emergency (ER) | payer MEDICAID ==
[~2022-02-23] VITALS: Ht 165.1 cm; Wt 139.6 kg
[~2022-02-23 09:36] MED LIST changes: -ACET1TAB37; +ACET1TAB63
[2022-02-23 10:06] VITALS: BP 206/90
--- NOTE | 2022-02-23 10:16 | PHYS DOC ---
Past Medical History Past Medical History: Asthma, Diabetes-Type II, High Cholesterol, Hypertension, Renal Disease Additional Past Medical Histor: morbid obesity, SLEEP APNEA (VICTORIA HOPPER APRN) Past Surgical History: Tubal ligation Additional Past Surgical Histo: hernia, gallstones removed -- "I DON'T REMEMBER" (VICTORIA HOPPER APRN) Smoking Status: Former Smoker Alcohol Use: None Drug Use: None (VICTORIA HOPPER APRN) General Adult EDM: Chief Complaint: FOOT INJURY PAIN HPI: HPI: Patient is a 66-year-old female who presents today with left great toe pain. Patient states pain started approximately 2 days ago, she denies any trauma to that area. Patient states she has had no fevers. (VICTORIA HOPPER LINING CASER) Review of Systems: Review of Systems: Constitutional: Denies fever or chills. [] Eyes: Denies change in visual acuity. [] HENT: Denies nasal congestion or sore throat. [] Respiratory: Denies cough or shortness of breath. [] Cardiovascular: Denies chest pain or edema. [] GI: Denies abdominal pain, nausea, vomiting, bloody stools or diarrhea. [] : Denies dysuria. [] Musculoskeletal: Left foot pain Integument: Denies rash. [] Neurologic: Denies headache, focal weakness or sensory changes. [] Endocrine: Denies polyuria or polydipsia. [] Lymphatic: Denies swollen glands. [] Psychiatric: Denies depression or anxiety. [] (VICTORIA HOPPER LINING CASER) Heart Score: C/O Chest Pain: No Risk Factors: Risk Factors: DM, Current or recent (<one month) smoker, HTN, HLP, family history of CAD, obesity. Risk Scores: Score 0 - 3: 2.5% MACE over next 6 weeks - Discharge Home Score 4 - 6: 20.3% MACE over next 6 weeks - Admit for Clinical Observation Score 7 - 10: 72.7% MACE over next 6 weeks - Early Invasive Strategies (VICTORIA HOPPER APRN) Allergies: Allergies: Allergies Coded Allergies Type Severity Reaction Last Updated Verified Penicillins Allergy Intermediate rash 11/21/17 Yes adhesive Allergy Intermediate rash 11/21/17 Yes sodium chloride for inhalation Allergy Mild Nausea and Vomiting 11/21/17 Yes Uncoded Allergies Type Severity Reaction Last Updated Verified toilet tissue Allergy Severe Rash 11/13/14 (VICTORIA HOPPER LINING CASER) Physical Exam: PE: Constitutional: Well developed, well nourished, no acute distress, non-toxic appearance. [] HENT: Normocephalic, atraumatic, bilateral external ears normal, oropharynx moist, no oral exudates, nose normal. [] Eyes: PERRLA, EOMI, conjunctiva normal, no discharge. [] Neck: Normal range of motion, no tenderness, supple, no stridor. [] Cardiovascular:Heart rate regular rhythm, no murmur [] Lungs & Thorax: Bilateral breath sounds clear to auscultation [] Abdomen: Bowel sounds normal, soft, no tenderness, no masses, no pulsatile masses. [] Skin: Warm, dry, no erythema, no rash. [] Back: No tenderness, no CVA tenderness. [] Extremities: Left foot tenderness with light palpation to the great toe as well as the joint, area is reddened and swollen, no obvious trauma noted, dorsalis pedis pulse is 2+ patient has decreased sensation in her toes but states that she has had that for a while due to her diabetes Neurologic: Alert and oriented X 3, normal motor function, normal sensory function, no focal deficits noted. [] Psychologic: Affect normal, judgement normal, mood normal. [] (VICTORIA HOPPER LINING CASER) Current Patient Data: Labs: Laboratory Tests Test 02/23/22 10:58 White Blood Count 9.1 x10^3/uL Red Blood Count 4.58 x10^6/uL Hemoglobin 13.9 g/dL Hematocrit 42.0 % Mean Corpuscular Volume 92 fL Mean Corpuscular Hemoglobin 30 pg Mean Corpuscular Hemoglobin Concent 33 g/dL Red Cell Distribution Width 14.2 % Platelet Count 286 x10^3/uL Neutrophils (%) (Auto) 56 % Lymphocytes (%) (Auto) 31 % Monocytes (%) (Auto) 9 % Eosinophils (%) (Auto) 3 % Basophils (%) (Auto) 1 % Neutrophils # (Auto) 5.1 x10^3/uL Lymphocytes # (Auto) 2.9 x10^3/uL Monocytes # (Auto) 0.9 x10^3/uL Eosinophils # (Auto) 0.2 x10^3/uL Basophils # (Auto) 0.1 x10^3/uL Sodium Level 142 mmol/L Potassium Level 3.9 mmol/L Chloride Level 104 mmol/L Carbon Dioxide Level 27 mmol/L Anion Gap 11 Blood Urea Nitrogen 30 mg/dL Creatinine 1.7 mg/dL Estimated GFR (Cockcroft-Gault) 36.4 Glucose Level 133 mg/dL Uric Acid 9.0 mg/dL Calcium Level 9.6 mg/dL Vital Signs: Vital Signs Date Time Temp Pulse Resp B/P (MAP) Pulse Ox O2 Delivery O2 Flow Rate FiO2 02/23/22 10:06 98.1 100 18 206/90 (128) 100 Room Air 98.1 (VICTORIA HOPPER APRN) EKG: EKG: [] (VICTORIA HOPPER APRN) Radiology/Procedures: Radiology/Procedures: REASON: great toe pain PROCEDURE: FOOT LEFT 3V EXAM: Left foot, 3 views. HISTORY: Great toe pain. COMPARISON: None. FINDINGS: 3 views of the left foot are obtained. There is no fracture, dislocation or subluxation. There is no suspicious osseous lesion or radiodense foreign body. There is a small plantar spur. There is minimal enthesopathy at the Achilles tendon insertion. IMPRESSION: No acute osseous finding. Electronically signed by: Jerri Carranza MD (02/23/2022 11:18 AM) [id number] [] (VICTORIA HOPPER APRN) Course & Med Decision Making: Course & Med Decision Making Pertinent Labs and Imaging studies reviewed. (See chart for details) 1205 I reviewed patient's radiological and laboratory results, I did inform her that she has gout in her left great toe, but since she has a history of renal failure and her creatinine today is 1.7 I will give her some dexamethasone while she is here in the emergency department and then prescribes 4 more days of prednisone, I will also give the patient some tramadol to take for pain relief. Patient is to follow-up with her primary care physician as soon as possible, she is to monitor her blood sugars closely and to watch her diet as well. Patient will also be given some information on foods to avoid to reduce the incidence of gout. (DERVICTORIA TRACY Disclaimer: Dragrishi Disclaimer: This electronic medical record was generated, in whole or in part, using a voice recognition dictation system. (VICTORIA HOPPER APRN) Departure Departure Impression: Primary Impression: Gout Qualified Codes: M10.9 - Gout, unspecified Disposition: HOME / SELF CARE / HOMELESS Condition: STABLE Referrals: DARVIN ALLEN MD (PCP) Patient Instructions: Gout Additional Instructions: Starting tomorrow February 24, 2022 take prednisone 40 mg daily for 4 days Tramadol take 1 tablet every 6 hours as needed for pain Wear postop shoe as needed for comfort Follow-up with your primary care physician as soon as possible for further evaluation and management of this gout Check your blood sugars frequently because the prednisone that you are being prescribed can elevate the blood sugars. I have given you a list of foods that are good for preventing gout and decreasing your uric acid level. Scripts Tramadol Hcl (TRAMADOL HCL) 50 Mg Tablet 50 MG PO PRN Q6HRS PRN for PAIN, #20 TAB 0 Refills Prov: VICTORIA HOPPER APRN 02/23/22 Prednisone (PREDNISONE) 20 Mg Tablet 2 TAB PO DAILY for 4 Days, #8 TAB start on February 24, 2022 Prov: VICTORIA HOPPER APRN 02/23/22 Attending Signature Attending Signature I have reviewed the PA/RIVET HAMMER MACHINE OPERATOR's note and plan of care. I was available for consultation as needed during the patient's visit in the emergency department. I agree with the clinical impression, plan, and disposition. (LAW MONTENEGRO DO) VICTORIA HOPPER APRN February 23, 2022 10:16 LAW MONTENEGRO DO March 01, 2022 16:25
[2022-02-23 11:13] LABS: BASO # 0.1 x10^3/uL (0.0-0.2); BASO % 1 % (0-3); EOS # 0.2 x10^3/uL (0.0-0.7); EOS % 3 % (0-3); HEMOGLOBIN 13.9 g/dL (12.0-15.5); LYMPH # 2.9 x10^3/uL (1.0-4.8); LYMPH % 31 % (24-48); MEAN CORPUSCULAR HEMOGLOBIN 30 pg (25-35); MEAN CORPUSCULAR HGB CONC 33 g/dL (31-37); MEAN CORPUSCULAR VOLUME 92 fL (79-100); MONO # 0.9 x10^3/uL (0.0-1.1); MONO % 9 % (0-9); NEUT # 5.1 x10^3/uL (1.8-7.7); NEUT % 56 % (31-73); PLATELET COUNT 286 x10^3/uL (140-400); RED BLOOD COUNT 4.58 x10^6/uL (3.50-5.40); RED CELL DISTRIBUTION WIDTH 14.2 % (11.5-14.5); WHITE BLOOD COUNT 9.1 x10^3/uL (4.0-11.0)
[2022-02-23 11:22] LABS: CALCIUM 9.6 mg/dL (8.5-10.1); CREATININE 1.7 mg/dL (0.6-1.0); GFR 36.4; POTASSIUM 3.9 mmol/L (3.5-5.1)
[2022-02-23] MEDS ORDERED: PRED20TA PO (12:13)
[2022-02-23] MEDS ORDERED: TRAM50TA PO (12:13)
[2022-02-23] MEDS ORDERED: DEXAMETHASONE 4 MG TABLET PO ONE (12:15)
--- NOTE | 2022-02-23 12:23 | RAD ---
EXAM: Left foot, 3 views. HISTORY: Great toe pain. COMPARISON: None. FINDINGS: 3 views of the left foot are obtained. There is no fracture, dislocation or subluxation. Th ere is no suspicious osseous lesion or radiodense foreign body. There is a small plantar spur. There is minimal enthesopathy at the Achilles tendon insertion. IMPRESSION: No acute osseous finding. Electronically signed by: Jerri Carranza MD (02/23/2022 11:18 AM) [id number]
== END 2022-02-23 12:44 | disposition home or self-care (01) ==
LOC: ER 09:36
DX: M10.9 Gout, unspecified (principal); J45.909 Unspecified asthma, uncomplicated; E78.00 Pure hypercholesterolemia, unspecified; E11.22 Type 2 diabetes mellitus with diabetic chronic kidney disease; I12.9 Hypertensive chronic kidney disease with stage 1 through stage 4 chronic kidney disease, or unspecified chronic kidney disease; N18.9 Chronic kidney disease, unspecified; E66.01 Morbid (severe) obesity due to excess calories; Z68.43 Body mass index [BMI] 50.0-59.9, adult; Z87.891 Personal history of nicotine dependence; Z88.0 Allergy status to penicillin; Z88.8 Allergy status to other drugs, medicaments and biological substances
CPT/HCPCS: 36415; 73630; 80048; 84550; 85025; 85651; 99284